=== PATIENT | female | born 1965 | race Caucasian/White ===

== ENCOUNTER → 2023-03-13 09:43 | Outpatient (CLI) | payer BC, SELFPAY ==
[2023-03-13 18:04] LABS: Basophils # 0.1 K/mm3 (0-0.2); Basophils % 0.7 % (0.1-2.0); Eosinophils # 0.2 K/mm3 (0.0-0.4); Eosinophils % 2.1 % (0.1-12.0); Hematocrit 46.4 % (37.0-47.0); Hemoglobin 15.4 g/dL (12.2-16.2); Lymphocytes % 33.8 % (10-50); Mean Corpuscular HGB Conc 33.2 g/dL (31.8-35.4); Mean Corpuscular Hemoglobin 29.1 pg (27.0-31.2); Mean Corpuscular Volume 87.6 fl (81-99); Mean Platelet Volume 8.9 fl (7.4-10.4); Monocytes # 0.5 K/mm3 (0.1-1.0); Monocytes % 5.2 % (1.7-9.3); Neutrophils # 5.2 K/mm3 (1.8-7.8); Neutrophils % 58.1 % (37.0-80.0); Platelet Count 298 K/mm3 (142-424); Red Cell Distribution Width 13.8 % (11.5-17.5); White Blood Count 8.9 K/mm3 (4.8-10.8)
[2023-03-13 18:22] LABS: Alanine Aminotransferase 61 U/L (12-78); Albumin Level 4.3 g/dl (3.5-5.0); Albumin/Globulin Ratio 1.4 (1.1-1.8); Alkaline Phosphatase 99 U/L (38-126); Anion Gap 14.2 mEq/L (5-15); Aspartate Amino Transferase 47 U/L (14-36); Bilirubin,Total 0.5 mg/dl (0.2-1.3); Blood Urea Nitrogen 15 mg/dl (7-17); Calcium 9.4 mg/dl (8.4-10.2); Carbon Dioxide 25 mmol/L (22.0-30.0); Chloride 101 mmol/L (98-107); Chol/HDL Ratio 4.6 (1-3.5); Cholesterol 216 mg/dl (140-200); Estimated Glomerular Filt Rate 86 ml/min (>60); GFR (African American) 104 ML/MIN (>60); Globulin 3.1 g/dL (1.3-3.2); Glucose 229 mg/dl (74-100); HDL Cholesterol 47 mg/dl (40-60); Potassium 4.2 mmoL/L (3.5-5.1); Sodium 136 mmol/L (136-145); Total Protein,Serum 7.4 g/dl (6.3-8.2); Triglycerides 240 mg/dl (30-150); VLDL Cholesterol 48 mg/dL (0-40)
[2023-03-13 18:34] LABS: Direct LDL Cholesterol 121.71 mg/dL (100-129)
[2023-03-13 18:39] LABS: 25-OH Vitamin D, Total 28.5 ng/mL (30-100)
[2023-03-13 18:53] LABS: Thyroid Stimulating Hormone 0.62 uIU/mL (0.465-4.68)
[2023-03-13 19:12] LABS: Vitamin B12 634 pg/mL (239-931)
[2023-03-13 20:03] LABS: Hemoglobin A1C 10.1 % (4.0-6.0)
[2023-03-13 21:03] LABS: Microalbumin/Creatinine Ratio 33.7
[2023-03-13 21:05] LABS: Creatinine,Urine Random 29 mg/dL (Not Estab.)
== END ==
LOC: LAB.DROPOF 03-14 06:32
PROVIDERS: PCP Nurse Practitioner; Visit Provider Nurse Practitioner
DX: E11.9 Type 2 diabetes mellitus without complications (principal); F41.8 Other specified anxiety disorders; J45.909 Unspecified asthma, uncomplicated; Z68.32 Body mass index [BMI] 32.0-32.9, adult; Z79.84 Long term (current) use of oral hypoglycemic drugs; E55.9 Vitamin D deficiency, unspecified; J82.83 Eosinophilic asthma
CPT/HCPCS: 80053; 80061; 82043; 82306; 82570; 82607; 83036; 84443; 85025

== ENCOUNTER → 2023-05-14 06:55 | Outpatient (CLI) | payer BC, SELFPAY ==
[2023-05-14 19:58] LABS: Alanine Aminotransferase 49 U/L (12-78); Albumin Level 4.3 g/dl (3.5-5.0); Albumin/Globulin Ratio 1.5 (1.1-1.8); Alkaline Phosphatase 91 U/L (38-126); Anion Gap 11.2 mEq/L (5-15); Aspartate Amino Transferase 37 U/L (14-36); Bilirubin,Total 0.4 mg/dl (0.2-1.3); Blood Urea Nitrogen 15 mg/dl (7-17); Calcium 8.5 mg/dl (8.4-10.2); Carbon Dioxide 24 mmol/L (22.0-30.0); Chloride 105 mmol/L (98-107); Chol/HDL Ratio 4.7 (1-3.5); Cholesterol 242 mg/dl (140-200); Estimated Glomerular Filt Rate 74 ml/min (>60); GFR (African American) 89 ML/MIN (>60); Globulin 2.9 g/dL (1.3-3.2); Glucose 143 mg/dl (74-100); HDL Cholesterol 52 mg/dl (40-60); Potassium 4.2 mmoL/L (3.5-5.1); Sodium 136 mmol/L (136-145); Total Protein,Serum 7.2 g/dl (6.3-8.2); Triglycerides 252 mg/dl (30-150); VLDL Cholesterol 50 mg/dL (0-40)
[2023-05-14 20:09] LABS: Direct LDL Cholesterol 145.54 mg/dL (100-129); Hemoglobin A1C 8.1 % (4.0-6.0)
[2023-05-14 21:30] LABS: 25-OH Vitamin D, Total 40.9 ng/mL (30-100)
== END ==
LOC: LAB.DROPOF 05-15 06:56
PROVIDERS: PCP Nurse Practitioner; Visit Provider Nurse Practitioner
DX: E11.9 Type 2 diabetes mellitus without complications (principal); E55.9 Vitamin D deficiency, unspecified; E78.5 Hyperlipidemia, unspecified; I10 Essential (primary) hypertension; Z79.84 Long term (current) use of oral hypoglycemic drugs
CPT/HCPCS: 80053; 80061; 82306; 83036

== ENCOUNTER 2023-12-17 10:40 | Outpatient (CLI) | payer BC, SELFPAY ==
[2023-12-17 18:26] LABS: Alanine Aminotransferase 33 U/L (12-78); Albumin Level 4.1 g/dl (3.5-5.0); Albumin/Globulin Ratio 1.4 (1.1-1.8); Alkaline Phosphatase 112 U/L (38-126); Anion Gap 13.5 mEq/L (5-15); Aspartate Amino Transferase 26 U/L (14-36); Bilirubin,Total 0.5 mg/dl (0.2-1.3); Blood Urea Nitrogen 22 mg/dl (7-17); Calcium 9.4 mg/dl (8.4-10.2); Carbon Dioxide 27 mmol/L (22.0-30.0); Chloride 103 mmol/L (98-107); Chol/HDL Ratio 3.8 (1-3.5); Cholesterol 215 mg/dl (140-200); Estimated Glomerular Filt Rate 86 ml/min (>60); GFR (African American) 104 ML/MIN (>60); Globulin 2.9 g/dL (1.3-3.2); Glucose 293 mg/dl (74-100); HDL Cholesterol 57 mg/dl (40-60); Potassium 4.5 mmoL/L (3.5-5.1); Sodium 139 mmol/L (136-145); Triglycerides 159 mg/dl (30-150); VLDL Cholesterol 32 mg/dL (0-40)
[2023-12-17 18:38] LABS: Direct LDL Cholesterol 118.23 mg/dL (100-129)
[2023-12-17 18:57] LABS: Thyroid Stimulating Hormone 0.95 uIU/mL (0.465-4.68)
[2023-12-17 18:59] LABS: Microalbumin/Creatinine Ratio 9.2
[2023-12-17 19:02] LABS: Creatinine,Urine Random 102 mg/dL (Not Estab.)
[2023-12-17 19:13] LABS: Hemoglobin A1C 9.7 % (4.0-6.0)
== END 2023-12-17 23:59 | disposition home or self-care (01) ==
LOC: LAB.DROPOF 12-18 10:41
PROVIDERS: PCP Nurse Practitioner; Visit Provider Nurse Practitioner
DX: E11.9 Type 2 diabetes mellitus without complications (principal); I10 Essential (primary) hypertension; E55.9 Vitamin D deficiency, unspecified; E78.5 Hyperlipidemia, unspecified; F41.8 Other specified anxiety disorders; J45.909 Unspecified asthma, uncomplicated
CPT/HCPCS: 80053; 80061; 82043; 82306; 82570; 83036; 84443

== ENCOUNTER 2024-03-12 08:52 | Outpatient (CLI) | payer BC, SELFPAY ==
[2024-03-12 19:04] LABS: Alanine Aminotransferase 29 U/L (12-78); Albumin Level 4.5 g/dl (3.5-5.0); Albumin/Globulin Ratio 1.7 (1.1-1.8); Alkaline Phosphatase 71 U/L (38-126); Anion Gap 6.3 mEq/L (5-15); Aspartate Amino Transferase 29 U/L (14-36); Bilirubin,Total 0.5 mg/dl (0.2-1.3); Blood Urea Nitrogen 18 mg/dl (7-17); Calcium 9.4 mg/dl (8.4-10.2); Carbon Dioxide 27 mmol/L (22.0-30.0); Chloride 109 mmol/L (98-107); Chol/HDL Ratio 2.2 (1-3.5); Cholesterol 132 mg/dl (140-200); Estimated Glomerular Filt Rate 74 ml/min (>60); GFR (African American) 89 ML/MIN (>60); Globulin 2.7 g/dL (1.3-3.2); Glucose 88 mg/dl (74-100); HDL Cholesterol 59 mg/dl (40-60); Potassium 4.3 mmoL/L (3.5-5.1); Sodium 138 mmol/L (136-145); Total Protein,Serum 7.2 g/dl (6.3-8.2); Triglycerides 92 mg/dl (30-150); VLDL Cholesterol 18 mg/dL (0-40)
[2024-03-12 19:09] LABS: Hemoglobin A1C 6.8 % (4.0-6.0)
[2024-03-12 19:15] LABS: Direct LDL Cholesterol 50.41 mg/dL (100-129)
[2024-03-12 19:53] LABS: Vitamin B12 796 pg/mL (239-931)
== END 2024-03-12 23:59 | disposition home or self-care (01) ==
LOC: LAB.DROPOF 03-13 09:39
PROVIDERS: PCP Nurse Practitioner; Visit Provider Nurse Practitioner
DX: E11.9 Type 2 diabetes mellitus without complications (principal); E78.5 Hyperlipidemia, unspecified
CPT/HCPCS: 80053; 80061; 82607; 83036

== ENCOUNTER 2024-06-22 09:26 | Outpatient (CLI) | payer BC, SELFPAY ==
[2024-06-22 18:53] LABS: Albumin Level 4.4 g/dl (3.5-5.0); Chloride 104 mmol/L (98-107); Potassium 5.3 mmoL/L (3.5-5.1); Sodium 138 mmol/L (136-145)
[2024-06-22 18:56] LABS: Alanine Aminotransferase 26 U/L (12-78); Albumin/Globulin Ratio 1.6 (1.1-1.8); Alkaline Phosphatase 72 U/L (38-126); Anion Gap 11.3 mEq/L (5-15); Aspartate Amino Transferase 29 U/L (14-36); Bilirubin,Total 0.3 mg/dl (0.2-1.3); Blood Urea Nitrogen 21 mg/dl (7-17); Calcium 9.3 mg/dl (8.4-10.2); Carbon Dioxide 28 mmol/L (22.0-30.0); Cholesterol 214 mg/dl (140-200); Estimated Glomerular Filt Rate 86 ml/min (>60); GFR (African American) 104 ML/MIN (>60); Globulin 2.8 g/dL (1.3-3.2); Glucose 87 mg/dl (74-100); Total Protein,Serum 7.2 g/dl (6.3-8.2); Triglycerides 102 mg/dl (30-150); VLDL Cholesterol 20 mg/dL (0-40)
[2024-06-22 18:57] LABS: Chol/HDL Ratio 3.3 (1-3.5); HDL Cholesterol 64 mg/dl (40-60)
[2024-06-22 19:08] LABS: Direct LDL Cholesterol 117.18 mg/dL (100-129)
[2024-06-22 19:13] LABS: Microalbumin/Creatinine Ratio 6.4
[2024-06-22 19:14] LABS: Creatinine,Urine Random 153 mg/dL (Not Estab.)
[2024-06-22 20:00] LABS: Hemoglobin A1C 5.6 % (4.0-6.0)
== END 2024-06-22 23:59 | disposition home or self-care (01) ==
LOC: LAB.DROPOF 06-23 07:45
PROVIDERS: PCP Nurse Practitioner; Visit Provider Nurse Practitioner
DX: E78.5 Hyperlipidemia, unspecified (principal); E11.9 Type 2 diabetes mellitus without complications; Z79.84 Long term (current) use of oral hypoglycemic drugs; Z79.85 Long-term (current) use of injectable non-insulin antidiabetic drugs
CPT/HCPCS: 80053; 80061; 82043; 82570; 83036

== ENCOUNTER 2024-07-21 16:58 | Outpatient (CLI) | payer BC, SELFPAY ==
--- NOTE | 2024-07-21 17:02 | MM_ITS ---
PROCEDURE INFORMATION: Exam: Bilateral Screening 3D Mammography Exam date and time: 07/21/2024 5:05 PM Age: 59 years old Clinical indication: Screening examination TECHNIQUE: Imaging protocol: Bilateral Screening tomosynthesis and 2D mammography including computer-aided detection (CAD) when performed. COMPARISON: MG MAMM-SCREENING W/ERROL 11/06/2021 8:16 AM FINDINGS: MAMMOGRAPHY: Breast composition: The breasts are heterogeneously dense, which may obscure small masses. Mass: None. Architectural distortion: None. Calcifications: No suspicious calcifications. Asymmetric density: None. Skin thickening: None. Axillary adenopathy: None. IMPRESSION: No mammographic evidence of malignancy. Annual screening is recommended unless otherwise clinically indicated. ASSESSMENT: BI-RADS Category 1: Negative.
== END 2024-07-21 23:59 | disposition home or self-care (01) ==
LOC: RAD 16:59
PROVIDERS: PCP Nurse Practitioner; Visit Provider Nurse Practitioner
DX: Z12.31 Encounter for screening mammogram for malignant neoplasm of breast (principal)
CPT/HCPCS: 77063; 77067

== ENCOUNTER 2024-10-20 11:40 | Outpatient (CLI) | payer BC, SELFPAY ==
--- OUTSIDE RECORDS SUMMARY | 2024-10-20 22:22 | XMS_ITS ---
Author Organization Unknown Medications Medication Instructions Effective Dates (start - stop) Status 24 HR glipizide 10 MG Extend ed Release Oral Tablet [id number]:00:00.000+00:0 0 - Completed sitagliptin 100 MG Oral Tabl et [Junuvia] [id number]:00:00.000+00:0 0 - Completed meloxicam 7.5 MG Oral Tablet 07-15-29T:00:00.000+00:00 - Completed 24 HR glipizide 10 MG Extend ed Release Oral Tablet [id number]:00:00.000+00:0 0 - Completed meloxicam 7.5 MG Oral Tablet 07-15-05:00:00.000+00:00 - Completed 24 HR glipizide 10 MG Extend ed Release Oral Tablet [id number]:00:00.000+00:0 0 - Completed lisinopril 10 MG Oral Tablet 07-10-30T:00:00.000+00:00 - Completed 24 HR glipizide 10 MG Extend ed Release Oral Tablet [id number]:00:00.000+00:0 0 - Completed meloxicam 7.5 MG Oral Tablet 07-14-09T:00:00.000+00:00 - Completed sitagliptin 100 MG Oral Tabl et [Junuvia] [id number]:00:00.000+00:0 0 - Completed meloxicam 7.5 MG Oral Tablet 08-02-13:00:00.000+00:00 - Completed lisinopril 10 MG Oral Tablet 08-06-14T:00:00.000+00:00 - Completed - [id number]:00 :00.000+00:00 - Completed meloxicam 7.5 MG Oral Tablet 08-05-05:00:00.000+00:00 - Completed methocarbamol 500 MG Oral Tablet [id number]:00:00.000+00:00 - Completed lisinopril 10 MG Oral Tablet 07-13-19:00:00.000+00:00 - Completed 120 ACTUAT fluticasone propi rosemary 0.044 MG/ACTUAT Metered Dose Inhaler [Flovent] [id number]:00:00.000+00:0 0 - Completed 24 HR glipizide 10 MG Extend ed Release Oral Tablet [id number]:00:00.000+00:0 0 - Completed meloxicam 7.5 MG Oral Tablet 08-04-05:00:00.000+00:00 - Completed sitagliptin 100 MG Oral Tabl et [Januvia] [id number]:00:00.000+00:0 0 - Completed meloxicam 7.5 MG Oral Tablet 08-01-21:00:00.000+00:00 - Completed ibuprofen 800 MG Oral Tablet 08-05-29:00:00.000+00:00 - Completed meloxicam 7.5 MG Oral Tablet 08-03-08:00:00.000+00:00 - Completed ibuprofen 800 MG Oral Tablet 08-07-13:00:00.000+00:00 - Completed [id number] 200 ACTUAT albuter ol 0.09 MG/ACTUAT Metered Dose Inhaler [id number]:00:00.000+00:0 0 - Completed lisinopril 10 MG Oral Tablet 08-04-15:00:00.000+00:00 - Completed dexamethasone 1 MG/ML / tobramycin 3 MG/ML Ophthalmic Suspension [id number]:00:00.000+00:0 0 - Completed Patient Care team information Name Category Status Period Participants - - Proposed period not known -
== END 2024-10-20 23:59 | disposition home or self-care (01) ==
LOC: LAB.DROPOF 22:21
PROVIDERS: PCP Nurse Practitioner; Visit Provider Nurse Practitioner
DX: N39.0 Urinary tract infection, site not specified (principal)
CPT/HCPCS: 87086

== ENCOUNTER 2025-05-24 09:10 | Outpatient (CLI) | payer BC, SELFPAY ==
[2025-05-24 16:44] LABS: Hematocrit 42.2 % (37.0-47.0); Hemoglobin 13.6 g/dL (12.2-16.2); Immature Granulocytes % 0.3 %; Mean Corpuscular HGB Conc 32.2 g/dL (31.8-35.4); Mean Corpuscular Hemoglobin 27.9 pg (27.0-31.2); Mean Corpuscular Volume 86.7 fl (81-99); Nucleated Red Blood Cells % 0 %; Platelet Count 315 K/mm3 (142-424); Red Blood Count 4.87 M/mm3 (4.20-5.40); Red Cell Distribution Width-SD 45.2 fL; White Blood Count 7.6 K/mm3 (4.8-10.8)
[2025-05-24 17:32] LABS: Alanine Aminotransferase 19 U/L (12-78); Albumin Level 4.4 g/dl (3.5-5.0); Albumin/Globulin Ratio 1.7 (1.1-1.8); Alkaline Phosphatase 77 U/L (38-126); Anion Gap 9.4 mEq/L (5-15); Aspartate Amino Transferase 25 U/L (14-36); Bilirubin,Total 0.6 mg/dl (0.2-1.3); Blood Urea Nitrogen 19 mg/dl (7-17); Calcium 9.0 mg/dl (8.4-10.2); Carbon Dioxide 28 mmol/L (22.0-30.0); Chloride 103 mmol/L (98-107); Cholesterol 231 mg/dl (140-200); Creatinine,Serum 0.90 mg/dl (0.52-1.04); Estimated Glomerular Filt Rate 64 ml/min (>60); GFR (African American) 77 ML/MIN (>60); Globulin 2.6 g/dL (1.3-3.2); Glucose 74 mg/dl (74-100); HDL Cholesterol 77 mg/dl (40-60); Potassium 4.4 mmoL/L (3.5-5.1); Sodium 136 mmol/L (136-145); Total Protein,Serum 7.0 g/dl (6.3-8.2); Triglycerides 111 mg/dl (30-150)
[2025-05-24 18:06] LABS: Thyroid Stimulating Hormone 0.48 uIU/mL (0.465-4.68)
[2025-05-24 18:22] LABS: Vitamin B12 585 pg/mL (239-931)
[2025-05-24 20:14] LABS: Hepatitis C Ab Qual. W/ RFX NEGATIVE (Negative)
[2025-05-24 20:56] LABS: Hemoglobin A1C 5.5 % (4.0-6.0)
--- OUTSIDE RECORDS SUMMARY | 2025-05-25 11:48 | XMS_ITS | Encounter Summary ---
Author Organization [place] [address] Care Team Providers Care Economics Faculty Member Name Role Phone Mono Moser MD Primary Care Provider [phone] Noel Haynes MD Primary Care Provider [phone] Fifi Mars MD Unavailable Fifi Mars MD Unavailable Elysia Schofield LPN Unavailable Unavailable China Medrano MD Primary Care Provider [phone] Encounter Details Date Type Department Care Team (Late st Contact Info) Description 05/24/2009 Orders Only [facility] [place] [address] [place] [address] Ashvin Meeks MD Social History Tobacco Use Types Packs/Day Years Used Date Smoking Tobacco: Never Assessed Comments Unknown Sex and Gender Information Value Date Recorded Sex Assigned at Not on file Legal Sex Female 11:22 AM EDT Gender Identity Not on file Sexual Orientation Not on file documented as of this encounter Plan of Treatment Not on file documented as of this encounter Procedures Procedure Name Priority Date/Time Associated Diagnosis Comments NM CARDIOLOGY - HISTORICAL Routine 05/24/2009 12:00 AM EST documented in this encounter Results * NM CARDIOLOGY - HISTORICAL (05/24/2009 12:00 AM EST) Anatomical Region Laterality Modality Other 05/24/2009 Narrative 06/06/2011 1:50 AM EST NOTICE: This report was electronically copied on 07/21/2011 from historical data generated by a practice prior to that practice using [facility] [employer] for Medical Records. Performing Provider: CHHAYA us Ashvin Meeks MD IMG ECHO ORDERABLES Final Res ult documented in this encounter Visit Diagnoses Not on filedocumented in this encounter Care Teams Economics Faculty Member Relationship Specialty Start Date End Date Mono Moser MD PCP - General 05/18/09 08/02/11 Noel Haynes MD [address] [facility] [place] [address] PCP - General Family Medicine 08/03/11 04/09/18 Fifi Mars MD [address] [facility] [address] [place] [address] PCP - Hematology/Oncology Internal Medicine-Medical Oncology 02/18/15 03/27/23 China Medrano MD [address] [place] [address] PCP - General Student in an Organized Health Care Education/Training Program 08/22/22 Fifi Mars MD [address] [facility] [address] [place], [place] [id number] Consulting Physician Internal Medicine-Medical Oncology 08/18/14 02/17/15 Elysia Schofield LPN [facility] Licensed Practical Nurse 12/14/15 08/20/16 documented as of this encounter
--- OUTSIDE RECORDS SUMMARY | 2025-05-25 11:48 | XMS_ITS | Encounter Summary ---
Author Organization [facility] Address [address] [place] [address] Care Team Providers Care Steelworker Name Role Phone Noel Haynes MD Primary Care Provider [phone] Mary Chu NP Unavailable Unavailable Mary Chu NP Primary Care Provider China Turcios MD Unavailable [phone] China Medrano MD Primary Care Provider [phone] Adria Hernandez MD Unavailable Unavailab Maddison Au RN Unavailable [phone] Ashvin Llanos MD Unavailable [phone] Encounter Details Date Type Department Care Team (Latest Contact Info) Description 11/15/2016 Preop Surgical Orders [facility] Physicians - Urology, [address] [place] [phone] Evelyn Holliday, FELICIA [address] [place] [address] Kidney stone (Primary Dx) Social History Tobacco Use Types Packs/Day Years Used Date Smoking Tobacco: Never Smokeless Tobacco: Never Alcohol Use Standard Drinks/Week Comments No 0 (1 standard drink = 0.6 oz pur e alcohol) Comments No Sex and Gender Information Value Date Recorded Sex Assigned at Female 05/29/2021 3:40 PM EST Legal Sex Female 7:13 PM EST Gender Identity Female 05/29/2021 3:40 PM EST Sexual Orientation Straight 05/29/2021 3: 40 PM EST documented as of this encounter Functional Status * Are you blind or do you have difficulty seeing, even when wearing glasses? Answer Date of Assessment Author No 09/09/2013 11:10 PM EDT Susanne Simon RN * Do you have serious difficulty walking or climbing stairs? Answer Date of Assessment Author No 09/09/2013 11:10 PM EDT Susanne Simon RN * Do you have difficulty dressing or bathing? Answer Date of Assessment Author No 09/09/2013 11:10 PM EDT Susanne Simon RN * Because of a physical, mental, or emotional condition, do you have difficulty doing errands alone such as a visiting a doctor's office or shopping? Answer Date of Assessment Author No 09/09/2013 11:10 PM EDT Susanne Simon RN documented as of this encounter Mental Status * Because of a physical, mental, or emotional condition, do you have serious difficulty concentrating, remembering, or making decisions? Answer Entry Date Author No 09/09/2013 11:10 PM EDT Susanne Simon RN documented in this encounter Plan of Treatment Not on file documented as of this encounter Visit Diagnoses Diagnosis Kidney stone- Primary Calculus of kidney documented in this encounter Additional Health Concerns Infection Onset Date Last Indicated Resolved Time Coronavirus COVID-19 Comment:06/20/2021 Tested Positive Covid-19. Per Patient 06/20/2021 06/24/2021 08/24/2021 6:54 AM EDT Influenza Comment:08/23/2021 Positive FLU A 08/23/2021 08/24/2021 022 7:59 AM EDT documented as of this encounter Care Teams Steelworker Relationship Specialty Start Date End Date Noel Haynes MD PCP - General Family Medicine 07/24/12 05/28/21 Mary Chu NP PCP - General Nurse Practitioner, Family 05/29/21 08/21/21 China Medrano MD PCP - General Family Medicine 08/22/21 Mary Chu NP Nurse Practitioner Nurse Practitioner, Family 05/29/21 10/23/21 China Medrano MD Family Medicine 08/21/21 10/23/21 Adria Hernandez MD Family Medicine 09/11/21 Maddison Foley, FELICIA [address] [place] [address] Graphics Software Engineer 04/12/22 04/13/22 Ashvin Llanos MD [address] [facility] [place] [address] Urology 06/10/22 documented as of this encounter
--- OUTSIDE RECORDS SUMMARY | 2025-05-25 11:48 | XMS_ITS | Encounter Summary ---
Author Organization [facility] Address [address] [place] [address] Care Team Providers Care Web Marketing Intern Name Role Phone China Medrano MD Primary Care Provider Adria Hernandez MD Unavailable Unavailab Ashvin Holly MD Unavailable [phone] Reason for Visit * Reason Comments Medications Refill Encounter Details Date Type Department Care Team (Late st Contact Info) Description 07/25/[address] [facility] Physicians - Primary Care[address] [address] China Medrano MD [address] [id number] Medications Refill Social History Tobacco Use Types Packs/Day Years Used Date Smoking Tobacco: Never Smokeless Tobacco: Never Alcohol Use Standard Drinks/Week Comments No 0 (1 standard drink = 0.6 oz pur e alcohol) PHQ-2 Answer Date Recorded PHQ-9 Auto Total 0 05/29/2021 Comments No Sex and Gender Information Value [...] Entry Date Author No 09/09/2013 11:10 PM Susanne Bateman RN documented in this encounter Miscellaneous Notes * Telephone Encounter - Elvi Martin MA - 07/25/2022 8:00 AM EST Last Office Visit:October 24 Next Office Visit:08/16/2022 Last rf 04/24/22 documented in this encounter Plan of Treatment Not on file documented as of this encounter Visit Diagnoses Diagnosis Uncontrolled type 2 diabetes mellitus with hyperglycemia (CMS/HCC) documented in this encounter Additional Health Concerns Assessment Noted Time PHQ-9 Depression Total Score: 1 05/29/20 21 2:30 PM EST documented as of this encounter Care Teams Web Marketing Intern Relationship Specialty Start Date End Date China Medrano MD PCP - General Family Medicine 08/22/21 Adria Hernandez MD Family Medicine 09/11/21 Ashvin Llanos MD [address] [place] [address] Urology 06/10/22 documented as of this encounter
--- OUTSIDE RECORDS SUMMARY | 2025-05-25 11:48 | XMS_ITS | Encounter Summary ---
Author Organization [place] [address] Care Team Providers Care High School Football Coach Name Role Phone Mono Moser MD Primary Care Provider [phone] Noel Haynes MD Primary Care Provider [phone] Fifi Mars MD Unavailable Fifi Mars MD Unavailable Elysia Schofield LPN Unavailable Unavailable China Medrano MD Primary Care Provider [phone] Encounter Details Date Type Department Care Team (Late st Contact Info) Description 05/24/2009 Orders Only [facility] [place] [address] [place] [address] Ashvin Meeks MD Social History [...] Procedure Name Priority Date/Time Associated Diagnosis Comments ECHO - HISTORICAL Routine 05/24/2009 12: 00 AM EST documented in this encounter Results * ECHO - HISTORICAL (05/24/2009 12:00 AM EST) Anatomical Region Laterality Modality Other 05/24/2009 Narrative 06/06/2011 1:50 AM EST NOTICE: This report was electronically copied on 07/20/2011 from historical data generated by a practice prior to that practice using [facility] for Medical Records. Performing Provider: CHHAYA us Ashvin Meeks MD IMG ECHO ORDERABLES Final Res ult documented in this encounter Visit Diagnoses Not on filedocumented in this encounter Care Teams High School Football Coach Relationship Specialty Start Date End Date Mono Moser MD PCP - General 05/18/09 08/02/11 Noel Haynes MD [address] [facility] [place] [phone] PCP - General Family Medicine 08/03/11 04/09/18 Fifi Mars MD [address] [facility] [address] [place] [address] PCP - Hematology/Oncology Internal Medicine-Medical Oncology 02/18/15 03/27/23 China Medrano MD [address] [facility] [place] [address] PCP - General Student in an Organized Health Care Education/Training Program 08/22/22 Fifi Mars MD [address] [facility] [address] [place], [place] [phone] Consulting Physician Internal Medicine-Medical Oncology 08/18/14 02/17/15 Elysia Schofield LPN [facility] Licensed Practical Nurse 12/14/15 08/20/16 documented as of this encounter
--- OUTSIDE RECORDS SUMMARY | 2025-05-25 11:48 | XMS_ITS | Clinical Summary ---
Author Organization [facility] Address [address] [place] [address] Phone Care Team Providers Care Special Delivery Mail Carrier Name Role Phone China Medrano MD Primary Care Provider [phone] Allergies Active Allergy Reactions Criticality Noted Date Comments Adhesive Other (See Comments) Medium 08/17/2022 Micropore tape tears her skin off; paper tape is OK Codeine Nausea And Vomiting Medium 08/21/2010 Corticosteroids (Glucocorticoids) Other (See Comments) High 01/12/2010 Heart racing Covid-19 Vacc,Mrna(Pfizer)(Pf) Anaphylaxis High 03/26/2023 Erythromycin Diarrhea Medium 01/12/2010 Gentamicin Other (See Comments) Medium 01/12/2010 Lips swell. Levofloxacin Other (See Comments) Low 08/21/2010 thrush Metformin Diarrhea Medium 07/14/2015 Oxycodone Nausea And Vomiting Medium 08/21/2010 Penicillins Rash Low 01/12/2010 Prednisone Other (See Comments) High 08/21/2010 Heart race Butorphanol Tartrate Other (See Comments) Medium 01/12 Psychotic reactions Medications Blood Sugar Diagnostic (GLUCOSE BLOOD TEST STRIPS) StrpIndications: DM type 2 without retinopathy (HCC) Use as directed to monitor blood sugars bid 100 Strip 1 2 Active aspirin 81 mg tablet Take 81 mg by mouth daily. Active Lancets MiscIndications: DM type 2 without retinopathy (HCC) Use as directed to monitor blood sugars bid 100 Each 3 3 Active cetirizine (ZYRTEC) 10 mg tablet Take 10 mg by mouth nightly. Active pen needle, diabetic 32 gauge x 1/6 Misc NeedleIndication s:Diabetes mellitus type 2, uncontrolled 1 Each by [facility].(Non-Drug; Combo Route) route daily. 100 Each 3 6 Active hydroCHLOROthiaz olivia (HYDRODIURIL) 25 mg Oral Tablet TAKE ONE TABLET BY MOUTH DAILY 30 Tab 2 6 Active Additional Information Patient not taking.Reason: Pt electing to not take the medication, Reported on 03/26/2023 albuterol (PROAIR HFA) 90 mcg/actuation Inhl HFA Aerosol InhalerIndicatio ns:Asthma exacerbation Inhale 1-2 Puffs into the lungs every 4 hours as needed for Wheezing. 8 g 1 7 Active estradiol (ESTRACE) 0.5 mg Oral Tablet Take 0.5 mg by mouth daily. Active PARoxetine (PAXIL) 20 mg Oral TabletIndication s:Major depressive disorder, recurrent, in full remission Take 1 Tab by mouth daily. 30 Tab 8 Active Additional Information Patient taking differently:20 mg Oral DAILY,Takes at night, Reason: Advised by Physician, Reported on 03/26/2023 lisinopril (PRINIVIL;ZESTRI L) 10 mg Oral TabletIndication s:Hypertension associated with diabetes (HCC) Take 1 Tab by mouth daily. 90 Tab 8 Active Additional Information Patient taking differently:10 mg OralNIGHTLY, Reason: Other, Reported on 08/17/2022 JANUVIA 100 mg Oral Tablet 100 mg daily. 1 9 Active glipiZIDE (GLUCOTROL XL) 10 mg Oral Tablet Extended Rel 24 hr Take 10 mg by mouth daily. Active diphenhydrAMINE (BENADRYL) 25 mg Oral Capsule Take 25 mg by mouth as needed. Active fluticasone propionate (FLOVENT) 44 mcg/actuation Inhl HFA Aerosol Inhaler Inhale 2 Puffs into the lungs as needed. 2 Active ibuprofen (ADVIL;MOTRIN) 800 mg Oral TabletIndication s:S/P right rotator cuff repair Take 1 Tablet by mouth 3 times daily. 90 Tablet 2 3 Active busPIRone (BUSPAR) 10 mg Oral Tablet TAKE 1 TABLET BY MOUTH TWICE A DAY NEEDED FOR ANXIETY/MOOD 3 Active montelukast (SINGULAIR) 10 mg Oral Tablet Take 10 mg by mouth daily. 3 Active Cholecalciferol, Vitamin D3, 50 mcg (2,000 unit) Oral Capsule Take by mouth daily. Active krill oil 500 mg Oral Capsule Take by mouth daily. Active Active Problems Patient Care Coordination No te Formatting of this note migh t be different from the original. 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 Major depressive disorder, recurrent, in full re mission 08/21/2010 Asthma 06/27/2010 Allergic rhinitis 06/27/2010 Calcium oxalate renal stones 06/27/2010 Hypertension associated with diabetes 06/27/2010 Chronic pain 06/27/2010 Overview (06/27/2010): See's Dr. Hernandez Resolved Problems Problem Noted Date Diagnosed Date Resolved Date History of malignant carcinoid tumor 02/10/2014 06/10/2019 Immunizations Immunization Administration Dates Next Due Influenza Intradermal 07/31/2016 Influenza Patient Reported 04/17/2013 Influenza Vaccine, Unspecified Formulation 04/07,03/03/2015 PPD Test 05/04/2013 Pneumococcal Polysaccharide 23 Valent 08/03/2011 Tdap 11/13/2011 Surgical History Surgery Date Site/Laterality Comments SECTION c section repair ABDOMEN SURGERY scar tissue HYSTERECTOMY APPENDECTOMY DENTAL SURGERY wisdom teeth removal SHOULDER ARTHROSCOPY 08/22/2022 Shoulder/Right RIGHT SHOULDER ARTHROSCOPIC ROTATOR CUFF REPAIR, SUBACROMIAL DECOMPRESSION, BICEPS TENOTOMY; Surgeon: Akin Richards MD; Location: [facility]; Service: Orthopedics Medical devices from this surgery are in the Medical Devices section. Medical History Medical History Date Comments Hypertension Asthma exercise induced , worsens when sick, has inhalers Allergy Depression with anxiety 08/21/2010 Blood transfusion 1993 post op surgic al complication Arthritis Shoulder pain Shortness of breath in conjuncti on w/asthma, exercise induced Diabetes mellitus (HCC) Palpitations none since SARS-CoV-2 positive 06/20/2022 Headache sinus and allerg y related Chronic kidney disease audra of [place] stones Post-operative nausea and vomiting Motion sickness Hyperlipidemia Heartburn Urinary incontinence Encounter for blood transfusion Cancer (HCC) Neuro of the amairani endix- removed Family History Medical History Relation Name Comments Diabetes Brother Cancer Father Diabetes Father Hearing Loss Father Heart Disease Father High Blood Pressure Father Asthma Mother Breast Cancer Mother Glaucoma Mother Kidney Disease Mother Relation Name Status Comments Brother Father Mother Alive Social History Tobacco Use Types Packs/Day Years Used Date Smoking Tobacco: Never Passive Smoke Exposure: Past Smokeless Tobacco: Never Tobacco Cessation:Counseling Given: Not Answered Alcohol Use Standard Drinks/Week Comments No 0 (1 standard drink = 0.6 oz pur e alcohol) Comments No Sex and Gender Information Value Date Recorded Sex Assigned at Not on file Legal Sex Female 11:22 AM EDT Gender Identity Not on file Sexual Orientation Not on file Last Filed Vital Signs Vital Sign Reading Time Taken Comments Blood Pressure 115/64 04/01/2023 11:31 AM EDT Pulse 90 04/01/2023 11:31 AM EDT Temperature 36.2 C (97.2 F) 04/01/2023 11:31 AM EDT Respiratory Rate 16 04/01/2023 11:31 AM EDT Oxygen Saturation 94% 04/01/2023 11:31 AM EDT Inhaled Oxygen Concentration - - Weight 76.3 kg (168 lb 3.2 oz) 04/01/2023 6:29 A M EDT Height 152.4 cm (5') 04/01/2023 6:29 AM EDT Body Mass Index 32.85 04/01/2023 6:29 AM EDT Plan of Treatment Health Maintenance Due Date Last Done Comments Annual Wellness Exam 1968 Diabetic Eye Exam 1983 HPV/Pap Cotest 1995 Colonoscopy 2010 FIT 2010 Sigmoidoscopy 2010 Virtual Colonography 2010 Pneumococcal Vaccine 50+ (2 of 2 - PCV) 08/02/2012 08/03/2011, 06/03/2011 RSV or 60+ (1 - Risk 50-74 years 1-dose series) 2015 Zoster (1 of 2) 2015 Kidney Health: uACR 11/06/2017 11/06/2016, 12/13/2015, 05/18/2013, Additional history exists Cervical Cancer Screening 03/18/2021 Pap Smear 03/18/2021 03/18/2018 Lipids 10/05/2021 10/05/2020, 07/05, 07/31/2016, Additional history exists DTaP/TDaP/Td (2 - Td or Tdap) 11/12/2021 11/13/2011 Hemoglobin A1c 11/27/2021 05/29/2021, 05/0 10/2020, 11/06/2016, Additional history exists Breast Cancer Screening 11/07/2023 11/07/19, 10/18/2018, 10/18/2018, Additional history exists Kidney Health: eGFR 03/27/2024 03/27/2023, 07/07/2021, 10/05/2020, Additional history exists Cologuard 06/01/2024 06/01/2021, 09/22/2015 Colon Cancer Screening 06/01/2024 COVID-19 Vaccine ( season) 2025 08/26/2020, 08/08/2020 Influenza Vaccine (#1) 2025 9, 05/04/2019, 04/07/2017, Additional history exists Hepatitis C Screening Completed 07/31/2016 Hepatitis B Vaccine Aged Out No longe r eligible based on patient's age to complete this topic Meningococcal B Vaccine Aged Out No l onger eligible based on patient's age to complete this topic Goals Goal Patient Goal Type Associated Problems Recent Progress Patient-Stated? Author Blood Pressure < 140/90 Blood Pressure 115/64(04/01 11:31 AM EDT) No Elysia Schofield LPN 45 grams of carbohydrates intake for women Diet On track(2016 12:44 PM EDT) No Elysia Schofield LPN 15 grams of carbohydrates for 2 snacks per day Diet On track(2016 12:44 PM EDT) No Elysia Schofield LPN Will not skip meals General On track(2016 12:44 PM EDT) Yes Elysia Schofield LPN BMI (Calculated) < 30 General 32.9( 023 6:29 AM EDT) No Elysia Schofield LPN Eat better, exercise, reach an ideal body weight General On track(2016 12:44 PM EDT) No Elysia Schofield LPN Check fasting glucose daily and document Lifestyle On track(2016 12:44 PM EDT) No Elysia Schofield LPN HEMOGLOBIN A1C < 7.0 Result Component 7.1(10/06/19 8:42 AM EDT) No Elysia Schofield LPN Medical Devices Implanted Type Area Pecan Gatherer Device Identifier Shelf Expiration Date Model / Serial / Lot Fairplay Sut Healix Advance 4.5mm Bcrl Rapide Wht/Blk - [id number] Implanted:Qty : 1 on 08/22/2022 by Akin Richards MD at [facility] Right: Shoulder J&J:ETHICON:MITE K PRDT 01/01/2024 [id number] / / [id number] Fairplay Sut Healix Advance 4.5mm Bcrl Rapide Wht/Blk - [id number] Implanted:Qty : 1 on 08/22/2022 by Akin Richards MD at [facility] Right: Shoulder J&J:ETHICON:MITE K PRDT 11/01/2023 [id number] / / [id number] Fairplay Sut Swivelk C 5.5x19.1mm Ft Kntls Twist-In Clsd Eylt - [id number] Implanted:Qty : 1 on 08/22/2022 by Akin Richards MD at [facility] Right: Shoulder ARTHREX [id number] 04/02/2026 [id number] C / / [id number] Fairplay Delmy Sauceda 5.5x19.1mm Ft Kntls Twist-In Clsd Eylt - [id number] Implanted:Qty : 1 on 08/22/2022 by Akin Richards MD at [facility] Right: Shoulder ARTHREX [id number] 04/02/2026 [id number]-[id number] C / / [id number] Procedures Procedure Name Priority Date/Time Associated Diagnosis Comments BASIC METABOLIC PANEL Routine 03/27/2023 12:33 PM EDT Preop testing Arthritis of right shoulder region LIPID PANEL REFLEX Routine 10/05/2020 8: 42 AM EDT Diabetes mellitus due to underlying condition with hyperosmolarity without coma, without long-term current use of insulin (HCC) HEMOGLOBIN A1C Routine 10/05/2020 8:42 AM EDT Diabetes mellitus due to underlying condition with hyperosmolarity without coma, without long-term current use of insulin (HCC) ALBUMIN/CREATININE RATIO, RANDOM URINE Routine 11/06/2016 9:00 AM EDT Controlled type 2 diabetes mellitus without complication, without long-term current use of insulin (HCC) HCV ANTIBODY SCREEN W/ REFLEX Routine 07/31/2016 2:12 PM EST Need for hepatitis C screening test HM MAMMOGRAPHY Routine 03/03/2016 from Last 3 Months or Most Recently Relevant to Health Maintenance Results * (ABNORMAL) BASIC METABOLIC PANEL (03/27/2023 12:33 PM EDT) Sodium 139 136 - 145 mmol/L 03/27/2023 8:09 PM EDT [facility] Potassium 4.1 3.5 - 5.0 mmol/L 03/27/2023 8:09 PM EDT [facility] Chloride 102 98 - 107 mmol/L 03/27/2023 8:09 PM EDT [facility] Total CO2 23 22 - 29 mmol/L 03/27/2023 8:09 PM EDT [facility] Anion Gap 14 7 - 16 mmol/L 03/27/2023 8:09 PM EDT [facility], [facility] Calcium 9.2 8.6 - 10.4 mg/dL 03/27/2023 8:09 PM EDT [facility] Glucose Lvl 175(H) 74 - 100 mg/dL 03/27/2023 8:09 PM EDT [facility], [facility] BUN 18 6 - 20 mg/dL 03/27/2023 8:09 PM EDT [facility] Creatinine 0.86 0.51 - 1.30 mg/dL 03/27/2023 8:09 PM EDT [facility] eGFR (CKD-EPIcr 2020) 78 >=60 mL/min/1.7 3 m2 03/27/2023 8:09 PM EDT [facility] Comment:Estimated GFR was ca lculated using the CKD-EPIcr (2020) equation refit without race. The equation is recommended by the National Kidney Foundation - [place] Society of Nephrology Task Force. Blood VENOUS BLOOD / Unknown Venipuncture / Unknown 03/27/2023 12:33 PM EDT 03/27/2023 12:33 PM EDT Kim Perez DOOR FRAME ASSEMBLER MACHINE CHEMISTRY ORDERABLES Final Re sult [facility], [facility] [address] [place] [id number] [facility] [address] [place] [address] * LIPID PANEL REFLEX (10/05/2020 8:42 AM EDT) Pathologist [facility] Cholesterol 166 <200 mg/dL 10/05/2020 3:02 PM EDT [facility] Comment: < 200 Desirable 200 - 239 Borderline High >= 240 High Triglyceride 134 <150 mg/dL 10/05/2020 3:02 PM EDT [facility], [facility] Comment: < 150 Normal 150 - 199 Borderline High 200 - 499 High >= 500 Very High HDL 49 >=40 mg/dL 10/05/2020 3:02 PM EDT [facility], [facility] Comment: > 60 Optimal 40 - 60 Acceptable < 40 Low LDL Calculated 90 <100 mg/dL 10/05/2020 3:02 PM EDT [facility], [facility] Non-HDL-C Calculated 117 <=129 mg/dL 10/05/2020 3:02 PM EDT [facility] [employer], [facility] Comment: <130 Desirable 130-159 Above Desirable 160-189 Borderline High 190-219 High >= 220 Very High Fasting Specimen? Yes None 021 3:02 PM EDT [facility] Blood VENOUS BLOOD / Unknown Venipuncture / Unknown 10/05/2020 8:42 AM EDT 10/05/2020 8:42 AM EDT us Referring Nonstaff CHEMISTRY ORDERABLES Final Re sult [facility] [employer] , [place] [address] [facility] [address] [place], [place] [id number] * (ABNORMAL) HEMOGLOBIN A1C (10/05/2020 8:42 AM EDT) [facility] Hgb A1C 7.1(H) 4.2 - 5.6 % 10/05/2020 4:12 PM EDT [facility], [facility] Est. Avg Glucose 157 mg/dL 10/05/2020 4:12 PM EDT [facility] [employer], [facility] Blood VENOUS BLOOD / Unknown Venipuncture / Unknown 10/05/2020 8:42 AM EDT 10/05/2020 8:42 AM EDT Narrative [facility] [employer], [facility] - 10/05/2020 4:12 PM EDT REFERENCE RANGE: Normal: 4.0-5.6% Pre-diabetes: 5.7-6.4% Provisional diagnosis of diabetes: >6.4% Hgb F>10% and anything which shortens red cell survival, such as hemolytic anemia, or unstable hemoglobin variants such as HbSS, HbSC, or HbCC, will lower the HbA1c value associated with a given level of glycemic control. us Referring Nonstaff CHEMISTRY ORDERABLES Final Re sult [facility], [employer] [address] [facility], [place] [address] * MICROALBUMIN/CREATININE RATIO URINE (11/06/2016 9:00 AM EDT) Urine Albumin <12.0 mg/L [facility] Urine Creatinine 115.9 mg/dL [facility] Ur Albumin/Creat See Footnote 0 - 30 [facility] Comment:Unable to calculate due to value outside linearity. Urine specimen (specimen) 11/06/2016 9:00 AM EDT 11/06/2016 2:35 PM EDT us Noel Haynes MD URINE ORDERABLES Final Result Performing Organization Address [facility] [[email or web address]] Co de Phone Number [facility] [address] [place] [address] * HEPATITIS C ANTIBODY - SCREENING (07/31/2016 2:12 PM EST) Hep C Ab Negative Negative [facility] Blood specimen (specimen) UPPER LIMB STRUCTURE / Unknown 07/31/2016 2:12 PM EST 07/31/2016 8:09 PM EST us Noel Haynes MD HEMATOLOGY ORDERABLES Final Resu lt Performing Organization Address [facility] [[email or web address]] Co de Phone Number [facility] [address] [place] [address] * HM MAMMOGRAPHY (03/03/2016) us Historical Provider HEALTH MAINTENANCE Final Res ult SEP OFFICE from Last 3 Months or Most Recently Relevant to Health Maintenance Insurance [facility] PPO ANTHEM PPO [facility] EFRA[facility]N WC [facility] Care Teams Special Delivery Mail Carrier Relationship Specialty Start Date End Date China Medrano MD [address] [facility] [address] [place] [address] PCP - General Student in an Organized Health Care Education/Training Program 08/22/22
--- OUTSIDE RECORDS SUMMARY | 2025-05-25 11:48 | XMS_ITS | Encounter Summary ---
Author Organization [facility] Address [address] [place] [address] Care Team Providers Care Robotics Testing Technician Name Role Phone China Medrano MD Primary Care Provider [phone] Adria Hernandez MD Unavailable Unavailab Ashvin Holly MD Unavailable [phone] Reason for Visit * Reason Comments Medications Refill Encounter Details Date Type Department Care Team (Late st Contact Info) Description 12/03/2023 Refill [facility] Physicians - Primary Care, [address] [address] China Medrano MD [address] [place] [id number] Medications Refill Social History Tobacco Use Types Packs/Day Years Used Date Smoking Tobacco: Never Smokeless Tobacco: Never Alcohol Use Standard Drinks/Week Comments No 0 (1 standard drink = 0.6 oz pur e alcohol) PHQ-2 Answer Date Recorded PHQ-9 Auto Total 0 08/16/2022 Comments No Sex and Gender Information Value [...] Noted Time PHQ-9 Depression Total Score: 1 08/17/19 23 4:27 PM EDT documented as of this encounter Care Teams Robotics Testing Technician Relationship Specialty Start Date End Date China Medrano MD PCP - General Family Medicine 08/22/21 Adria Hernandez MD Family Medicine 09/11/21 Ashvin Llanos MD [address] [facility] [place] [address] Urology 06/10/22 documented as of this encounter
--- OUTSIDE RECORDS SUMMARY | 2025-05-25 11:48 | XMS_ITS | Encounter Summary ---
Author Organization [facility] Address [address] [place] [address] Care Team Providers Care Ground Water Technician Name Role Phone Chay Gandhi MD Primary Care Provider [phone] Reason for Visit * Reason Comments Med Refill Encounter Details Date Type Department Care Team (Late st Contact Info) Description 04/04/2020 Refill [facility] FAMILY [facility] [address] [facility] [place] [address] Alex Gonzalez PA [address] [facility] [place] [address] Type 2 diabetes mellitus without complication, without long-term current use of insulin Social History Tobacco Use Types Packs/Day Years Used Date Smoking Tobacco: Never Smokeless Tobacco: Never Alcohol Use Standard Drinks/Week Comments No 0 (1 standard drink = 0.6 oz pur e alcohol) Comments Unknown Sex and Gender Information Value Date Recorded Sex Assigned at Not on file Legal Sex Female 1:03 PM EDT Gender Identity Not on file Sexual Orientation Not on file documented as of this encounter Plan of Treatment Not on file documented as of this encounter Visit Diagnoses Diagnosis Type 2 diabetes mellitus without complication, without long-term current use of insulin documented in this encounter Care Teams Ground Water Technician Relationship Specialty Start Date End Date Chay Gandhi MD [address] [facility] [place] [address] PCP - General Family Medicine 09/05/20 documented as of this encounter
--- OUTSIDE RECORDS SUMMARY | 2025-05-25 11:48 | XMS_ITS | Clinical Summary ---
Author Organization [facility] Address [address] [place] [address] Care Team Providers Care Shader And Toner Name Role Phone Lorena Osborn DO Primary Care Provider [phone] Allergies Active Allergy Reactions Criticality Noted Date Comments Codeine Not Recorded 01/02/2016 Erythromycin Not Recorded 01/02/2016 Gentamicin Not Recorded 01/02/2016 Levofloxacin Not Recorded 01/02/2016 Penicillins Not Recorded 01/02/2016 Prednisone Not Recorded 01/02/2016 Butorphanol Not Recorded 01/02/2016 Medications aspirin 81 MG TBEC Take 81 mg by mouth daily. Active paroxetine (PAXIL) 20 MG TABS Take 10 mg by mouth every morning. Active lisinopril (PRINIVIL,ZESTRI L) 10 MG TABS Take 10 mg by mouth daily. Active albuterol 108 (90 BASE) MCG/ACT AERS Use 2 puffs every 6 (six) hours as needed. Active Cetirizine HCl (ZYRTEC ALLERGY PO) Take by mouth. Active estradiol (ESTRACE) 0.5 MG TABS Take 1 tablet by mouth daily. 30 tablet 12 04/29/2018 Active estradiol (ESTRACE) 0.5 MG TABS Take 1 tablet by mouth daily. 30 tablet 11 04/29/2018 Active Active Problems Problem Noted Date Diagnosed Date Menopausal symptoms 10/09/2016 Family History Medical History Relation Name Comments Diabetes Brother Hypertension Brother Kidney Disease Brother Arthritis Father Cancer Father Diabetes Father Heart Disease Father Hypertension Father Prostate cancer Father Asthma Mother Breast cancer Mother in her 70's Cancer Mother Hypertension Mother Kidney Disease Mother Ovarian cancer Neg Hx Relation Name Status Comments Brother Father Alive Mother Alive Social History Tobacco Use Types Packs/Day Years Used Date Smoking Tobacco: Never Smokeless Tobacco: Never Alcohol Use Standard Drinks/Week Comments No 0 (1 standard drink = 0.6 oz pur e alcohol) Comments No Sex and Gender Information Value Date Recorded Sex Assigned at Not on file Legal Sex Female 12:55 AM EDT Gender Identity Not on file Sexual Orientation Not on file Last Filed Vital Signs Vital Sign Reading Time Taken Comments Blood Pressure 110/80 03/18/2018 1:42 PM EDT Pulse - - Temperature - - Respiratory Rate - - Oxygen Saturation - - Inhaled Oxygen Concentration - - Weight 78.2 kg (172 lb 6.4 oz) 03/18/2018 1:42 P M EDT Height 154.9 cm (5' 1 ) 03/18/2018 1:42 PM EDT Body Mass Index 32.57 03/18/2018 1:42 PM EDT Plan of Treatment Health Maintenance Due Date Last Done Comments Hepatitis C Screening 1965 Colonoscopy 2010 Pneumococcal 50+ (2 of 2 - PCV) 2015 08/03/2011, 06/03/2011 Shingrix (#1) 2015 Mammogram Screening 10/19/2019 10/18/2018, 01/11/2016, 01/09/2016 Pap Screening 03/18/2021 03/18/2018 DTap,Tdap,and Td (2 - Td or Tdap) 11/12/2021 11/13/2011 COVID-19 Vaccine ( season) 2025 08/26/2020, 08/08/2020 Influenza Vaccine (#1) 2025 9, 05/04/2019, 04/12/2017, Additional history exists RSV Vaccine (60+ or ) (1 - 1-dose 75+ series) 2040 Pneumococcal 0-49 Discontinued 08/03/2011, 06/03/2011 HPV Aged Out No longer eligi ble based on patient's age to complete this topic Meningococcal conjugate valent 4 (MCV4) Aged Out No longer eligible based on patient's age to complete this topic RSV Immunization (<20 months) Aged Out No longer eligible based on patient's age to complete this topic Procedures Procedure Name Priority Date/Time Associated Diagnosis Comments [facility] SCR BILAT ERROL Routine 10/18/2018 1: 32 PM EDT Breast screening CYTOLOGY KEYBOARD OPERATOR Today 03/18/2018 2:24 PM EDT Encounter for gynecological examination without abnormal finding from Last 3 Months or Most Recently Relevant to Health Maintenance Results * [facility] SCR JOSE C DIG CAD ERROL (10/18/2018 1:32 PM EDT) Anatomical Region Laterality Modality Chest Bilateral Mammography 10/19/2018 8:54 PM EDT Impressions 10/19/2018 8:55 PM EDT No mammographic evidence of malignancy CATEGORY BI-RADS: 1: Negative MANAGEMENT: Routine annual mammography unless otherwise clinically indicated NOTE: The breast center staff will notify the patient of the results. If there are questions about the content of this report, please contact [facility] radiology by calling [phone]. RISK ASSESSMENT: A preliminary breast cancer risk assessment was conducted as part of the patient's screening mammogram visit. If there are any questions about the risk assessment process or results, a navigator can be contacted at [phone]. Patient's lifetime Davida model risk: 8.6% (20% and greater considered high risk) [facility] Family History Risk Score: 0 (1 and greater considered high risk) Narrative 10/19/2018 8:55 PM EDT SCREENING DIGITAL BILATERAL MAMMOGRAM WITH COMPUTER AIDED DETECTION AND TOMOSYNTHESIS HISTORY: Routine annual screening COMPARISON: 2016 mammograms TECHNIQUE: Bilateral mediolateral oblique and craniocaudal views with computer aided detection and tomosynthesis BREAST COMPOSITION: The breasts are heterogeneously dense, which may obscure small masses FINDINGS: No suspicious masses, suspicious microcalcifications or areas of nonsurgical architectural distortion identified. Right breast skin marker. Gunjan Lee MD [facility] Final Result * CYTOLOGY KEYBOARD OPERATOR (03/18/2018 2:24 PM EDT) CYTOLOGY-KEYBOARD OPERATOR CYTOLOGY GYNECOLOGICAL REPORT Name: JEREL SOTO EPI#: [id number] Case #: [id number] Final Cytologic Diagnosis A. Vaginal thinprep pap: Adequacy: Satisfactory for evaluation. Interpretation: Negative for intraepithelial lesion or malignancy. This specimen has been analyzed by the ThinPrep Imaging System (Koinify.), an automated imaging and review system, which assists the optical engineering technician and/or pathologist in evaluation of cells on Thinprep Pap tests. Electronically Signed Out By Chandra Cummings Source of Specimen(s) A: Vaginal thinprep pap Clinical History Menstrual History: Hysterectomy Microscopic Description {Not Entered} Signed out at [facility], [address] [place] [address] [facility] Laboratories Non-Formatted Report [facility] 03/18/2018 2:24 PM EDT 03/19/2018 9:09 AM EDT Comment:VAGINAL THINPREP PAP Gunjan Lee MD PATHOLOGY/CYTOLOGY ORDERABLE S Final Result Performing Organization Address City/State/[facility] Co de Phone Number [facility] [address] [phone] from Last 3 Months or Most Recently Relevant to Health Maintenance Insurance BLUE CROSS ALL OTHERS NOT MEDICARE Care Teams Shader And Toner Relationship Specialty Start Date End Date Lorena Osborn DO PCP - General Family Medicine 10/16/18
--- OUTSIDE RECORDS SUMMARY | 2025-05-25 11:48 | XMS_ITS | Clinical Summary ---
[facility] Address [address] [place] [id number] Care Team Providers Care Regional Cra Name Role Phone Chay Gandhi MD Primary Care Provider [phone] Allergies Active Allergy Reactions Criticality Noted Date Comments Butorphanol Itching 11/20/2016 sweaty Butorphanol Tartrate Hallucinations 03/28/2011 Psychotic episode-hallucina tions Codeine Nausea And Vomiting 03/28/2011 Erythromycin Nausea And Vomiting 03/28/2011 Gentamicin Swelling 03/28/2011 Lips swelled Hydrochlorothiazide Dizziness 11/20/2016 Dizzy, hypotension Hydromorphone Itching 11/20/2016 Sweaty & itchy Levofloxacin Rash Low 03/28/2011 thrush Metformin Diarrhea 11/20/2016 Methylprednisolone Sodium Succ Palpitations Low 03/28/2011 Heart racing - chest pain Other Itching Medium 04/02/2011 Plastic non-allergic tape (micro pore tape) - causes blisters Oxycodone Nausea Only 11/20/2016 Will take if pain is too bad Penicillins Rash Low 03/28/2011 Prednisone Palpitations Low 03/28/2011 Heart race Medications diphenhydrAMINE (BENADRYL) 25 mg capsule Take 25 mg by mouth Every 6 (Six) Hours As Needed for Itching. Active cholecalciferol (VITAMIN D3) 1000 units tablet Take 1,000 Units by mouth Daily. Active aspirin (aspirin) 81 MG EC tablet Take 81 mg by mouth. Active cetirizine (zyrTEC) 10 MG tablet Take 10 mg by mouth Daily. Active atorvastatin (Lipitor) 10 MG tabletIndications :Hypercholesterol emia Take 1 tablet by mouth Daily. 90 tablet 1 02/24/2021 Active albuterol sulfate HFA (ProAir HFA) 108 (90 Base) MCG/ACT inhalerIndication s:Moderate persistent asthma, unspecified whether complicated 1-2 puffs every 4-6 hours as neede 24 g 2 03/01/2021 Active glipizide (GLUCOTROL) 10 MG tabletIndications :Type 2 diabetes mellitus without complication, without long-term current use of insulin TAKE 1 TABLET BY MOUTH TWICE A DAY BEFORE MEALS 180 tablet 05/15/2021 Active lisinopril (PRINIVIL,ZESTRIL ) 10 MG tabletIndications :Essential hypertension TAKE 1 TABLET DAILY. 90 tablet 11/09/2021 Active Januvia 100 MG tabletIndications :Type 2 diabetes mellitus without complication, without long-term current use of insulin TAKE 1 TABLET DAILY. 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 09/01/2015 Pelvic inflammatory disease 04/02/2011 Major depressive disorder, recurrent, in full re mission 08/21/2010 Asthma 04/18/2006 Overview (02/17/2021): ICD-10 Transition Calcium oxalate renal stones 04/18/2006 Immunizations Immunization Administration Dates Next Due Fluzone (or Fluarix & Flulav al for VFC) >6mos 05/04/2019 Influenza Split Preservative Free ID 07/31/2016 Influenza, Unspecified 04/07/2017,03/03/2015, PPD Test 05/04/2013 Pneumococcal Polysaccharide (PPSV23) 08/03/2011, 06/03/2011 Tdap 11/13/2011 Family History Medical History Relation Name Comments Diabetes Brother Hypertension Brother Cancer Father throat, prostat e Diabetes Father Hypertension Father Cancer Mother breast Relation Name Status Comments Brother Father Mother Social History Tobacco Use Types Packs/Day Years Used Date Smoking Tobacco: Never Smokeless Tobacco: Never Alcohol Use Standard Drinks/Week Comments No 0 (1 standard drink = 0.6 oz pur e alcohol) Abuse Screen Answer Date Recorded Unsafe at Home or Work/School Not on file Feels Threatened by Someone? Not on file 04/2023 Does Anyone Keep You from Co ntacting Others or Doint Things Outside the Home? Not on file 03/13/2023 Physical Sign of Abuse Present Not on file 1 Housing Stability Answer Date Recorded Current Living Arrangements Not on file 03/03 Potentially Unsafe Housing Conditions Not on eleazar e 03/13/2023 Family and Community Support Answer Kelvin e Recorded Help with Day-to-Day Activities Not on file 03/13/2023 Lonely or Isolated Not on file 03/13/2023 Employment Answer Date Recorded Do you want help finding or keeping work or a mason b? Not on file 03/13/2023 Disabilities Answer Date Recorded Concentrating, Remembering, or Making Decisions Difficulty Not on file 03/13/2023 Doing Errands Independently Difficulty Not on fi le 03/13/2023 Education Answer Date Recorded Help with school or training? Not on file Preferred Language Not on file 03/13/2023 Comments Unknown Sex and Gender Information Value Date Recorded Sex Assigned at Not on file Legal Sex Female 1:03 PM EDT Gender Identity Not on file Sexual Orientation Not on file Last Filed Vital Signs Vital Sign Reading Time Taken Comments Blood Pressure 120/76 02/17/2021 10:50 AM EDT Pulse 72 02/17/2021 10:50 AM EDT Temperature 37.2 C (98.9 F) 02/17/2021 10:50 AM EDT Respiratory Rate 18 02/17/2021 10:50 AM EDT Oxygen Saturation 99% 10/19/2019 12:00 PM EDT Inhaled Oxygen Concentration - - Weight 75.3 kg (166 lb) 02/17/2021 10:50 AM EDT Height 153 cm (5' 0.25 ) 02/17/2021 10:50 AM EDT Body Mass Index 32.15 02/17/2021 10:50 AM EDT Plan of Treatment Health Maintenance Due Date Last Done Comments Annual Gynecologic Pelvic an d Breast Exam 1965 COLOGUARD 2010 COLON CANCER SCREENING 5 YEA R SIGMOIDOSCOPY 2010 CT COLONOGRAPHY 2010 FECAL OCCULT BLOOD TEST 2010 FIT Testing (1 year) 2010 Pneumococcal Vaccine 50+ (2 of 2 - PCV) 2015 08/03/2011, 06/03/2011 ANNUAL PHYSICAL 04/10/2018 MAMMOGRAM 10/18/2020 10/18/2018 TDAP/TD VACCINES (2 - Td or Tdap) 11/12/2021 012 LIPID PANEL 02/17/2022 02/17/2021, 05/0 10/2020, 10/05/2020, Additional history exists INFLUENZA VACCINE 01/01/2025 05/04/2019, (Patient-Reported (Performed Externally)), 04/10/2018 (Declined), Additional history exists COLONOSCOPY 09/01/2025 09/02/2015 (Jaimee ent-Reported (Performed Externally)) COLORECTAL CANCER SCREENING 09/01/2025 HEPATITIS C SCREENING Completed 04/11/2018 HEMOGLOBIN A1C Discontinued 02/17/2021, 05/0 10/2020, 10/05/2020, Additional history exists [facility] Discontinued ZOSTER VACCINE Discontinued Procedures Procedure Name Priority Date/Time Associated Diagnosis Comments HEMOGLOBIN A1C Routine 02/17/2021 11:31 AM EDT Type 2 diabetes mellitus without complication, without long-term current use of insulin LIPID PANEL Routine 02/17/2021 11:31 AM EDT Hypertriglyceridemi a HEPATITIS C ANTIBODY Routine 04/11/2018 8:45 AM EST Need for hepatitis C screening test from Last 3 Months or Most Recently Relevant to Health Maintenance Results * (ABNORMAL) Hemoglobin A1c (02/17/2021 11:31 AM EDT) Hemoglobin A1C 7.40(H) 4.80 - 5.60 % [facility] Comment: Hemoglobin A1C Ranges: Increased Risk for Diabetes 5.7% to 6.4% Diabetes >= 6.5% Diabetic Goal < 7.0% Blood 02/17/2021 11:3 1 AM EDT 02/17/2021 Narrative [facility]) - 02/18/2021 3:07 AM EDT Performed at: [address] [place] [id number] Clinical Material Handler: Lauro Humphrey MD, Phone: [phone] Patient Fasting: Y us Chay Gandhi MD LAB BLOOD ORDERABLES Final Resu lt [facility] ([facility]AT[facility]) [address] [place] [address], [facility] [address] [place] [address], * (ABNORMAL) Lipid Panel (02/17/2021 11:31 AM EDT) [facility] Total Cholesterol 180 0 - 200 mg/dL [facility] Comment: Cholesterol Reference Ranges (U.S. Department of Health and Human Services ATP III Classifications) Desirable <200 mg/dL Borderline High 200-239 mg/dL High Risk >240 mg/dL Triglyceride Reference Ranges (U.S. Department of Health and Human Services ATP III Classifications) Normal <150 mg/dL Borderline High 150-199 mg/dL High 200-499 mg/dL Very High >500 mg/dL HDL Reference Ranges (U.S. Department of Health and Human Services ATP III Classifcations) Low <40 mg/dl (major risk factor for CHD) High >60 mg/dl ('negative' risk factor for CHD) LDL Reference Ranges (U.S. Department of Health and Human Services ATP III Classifcations) Optimal <100 mg/dL Near Optimal 100-129 mg/dL Borderline High 130-159 mg/dL High 160-189 mg/dL Very High >189 mg/dL Triglycerides 115 0 - 150 mg/dL [facility] HDL Cholesterol 53 40 - 60 mg/dL [facility] VLDL Cholesterol Leland 21 5 - 40 mg/dL [facility] LDL Chol Calc (NIH) 106(H) 0 - 100 mg/dL [facility] Blood 02/17/2021 11:3 1 AM EDT 02/17/2021 Narrative [facility] - 02/18/2021 3:07 AM EDT Performed at: [address] [id number] Clinical Material Handler: Lauro Humphrey MD, Phone: [phone] Patient Fasting: Y Chay Gandhi MD LAB BLOOD ORDERABLES Final Resu lt Performing Organization Address City/[facility]/ZIP Co de Phone Number [facility] [address] [place] [address], [facility] [address] [place] [address], * Hepatitis C antibody (04/11/2018 8:45 AM EST) [facility] Hep C Virus Ab 0.2 0.0 - 0.9 s/co ratio [facility] Comment: Negative: < 0.8 Indeterminate: 0.8 - 0.9 Positive: > 0.9 The CDC recommends that a positive HCV antibody result be followed up with a HCV Nucleic Acid Amplification test (520181). Blood 04/11/2018 8:45 AM EST 04/11/2018 Narrative [facility] (AMBUL[facility]) - 04/12/2018 7:11 AM EST Performed at: 02 [facility] [address] [place] [id number] Clinical Material Handler: Sahmar Watson PhD, Phone: [phone] Patient Fasting: Y Lorena Osborn DO LAB BLOOD ORDERABLES Final Result Performing Organization Address [facility] de Phone Number [facility] (AMBULATORY) [address] [place] [address], [facility] [address] [place] [address], from Last 3 Months or Most Recently Relevant to Health Maintenance Insurance Care Teams Regional Cra Relationship Specialty Start Date End Date Chay Gandhi MD [address] [place] [address] PCP - General Family Medicine 09/05/20
--- OUTSIDE RECORDS SUMMARY | 2025-05-25 11:48 | XMS_ITS | Encounter Summary ---
Author Organization [facility] Address [address] [place] [address] Care Team Providers Care Validation Intern Name Role Phone China Medrano MD Primary Care Provider [phone] Adria Hernandez MD Unavailable Unavailab Maddison Au RN Unavailable [phone] Ashvin Llanos MD Unavailable [phone] Reason for Visit * Reason Onset Date Comments Medications Refill 01/25/2022 Encounter Details Date Type Department Care Team (Late st Contact Info) Description 01/25/2022 Ref[facility] [address] [place] [address] Adria Hernandez MD Medications Refill Social History Tobacco Use Types [...] Assessment Author No 09/09/2013 11:10 PM EDT Susnane Simon RN * Because of a physical, [...] documented as of this encounter Care Teams Validation Intern Relationship Specialty Start Date End Date China Medrano MD PCP - General Family Medicine 08/22/21 Adria Hernandez MD Family Medicine 09/11/21 Maddison Foley, FELICIA [address] [place] [address] Patternmaker Pressure Cast 04/12/22 04/13/22 Ashvin Llanos MD [address] [place] [address] Urology 06/10/22 documented as of this encounter
--- OUTSIDE RECORDS SUMMARY | 2025-05-25 11:48 | XMS_ITS | Encounter Summary ---
[facility] Address [address] [place] [address] Care Team Providers Care User Acceptance Tester Name Role Phone Chay Gandhi MD Primary Care Provider [phone] Reason for Visit * Reason Onset Date Comments Med Refill 01/07/2020 Encounter Details Date Type Department Care Team (Late st Contact Info) Description 01/07/2020 Refill [facility] [address] [place] [id number] Alex Gonzalez PA [address] [place] [address] Essential hypertension Social History Tobacco Use Types Packs/Day Years [...] as of this encounter Visit Diagnoses Diagnosis Essential hypertension Unspecified essential hypertension documented in this encounter Care Teams User Acceptance Tester Relationship Specialty Start Date End Date Chay Gandhi MD [address] [place] [address] PCP - General Family Medicine 09/05/20 documented as of this encounter
--- OUTSIDE RECORDS SUMMARY | 2025-05-25 11:48 | XMS_ITS | Clinical Summary ---
Author Organization [facility] Address [address] [place] [address] Care Team Providers Care Practice Specialist Name Role Phone Nii Umanzor MD Primary Care Provider [phone] Source Comments This information has been disclosed to you from confidential records protectedfrom disclosure by state law. You shall make no further disclosure of thisinformation without the specific, written, and informed release of theindividual to whom it pertains, or as otherwise permitted by law. A generalauthorization for the release of medical or other information is not sufficientfor the purposes of therelease of HIV test results or diagnoses. [id number] Active Problems Problem Noted Date Diagnosed Date Asthma 04/18/2006 Overview (03/03/2015): ICD-10 Transition Calculus of kidney 04/18/2006 Hematuria 04/18/2006 Arthropathy 04/18/2006 Overview (03/03/2015): ICD-10 Transition Headache 04/18/2006 Overview (03/03/2015): ICD-10 Transition Social History Tobacco Use Types Packs/Day Years Used Date Smoking Tobacco: Never Assessed Comments Unknown Sex and Gender Information Value Date Recorded Sex Assigned at Not on file Legal Sex Female 4:23 PM EST Gender Identity Not on file Sexual Orientation Not on file Plan of Treatment Not on file Insurance BLUE ACCESS Care Teams Practice Specialist Relationship Specialty Start Date End Date Nii Umanzor MD [facility]: [address] [place] [address] PCP - General 10/21/06
--- OUTSIDE RECORDS SUMMARY | 2025-05-25 11:48 | XMS_ITS | Encounter Summary ---
Author Organization [facility] Address [address] [place] [address] Care Team Providers Care Carton Making Machine Operator Name Role Phone China Medrano MD Primary Care Provider [phone] Adria Hernandez MD Unavailable Unavailab Ashvin Holly MD Unavailable [phone] Reason for Visit * Reason Comments Medications Refill Encounter Details Date Type Department Care Team (Late st Contact Info) Description 06/22/2023 Refill [facility] Physicians - Primary Care, [address] [address] China Medrano MD [address] [place] [address] Medications Refill Social History Tobacco Use [...] documented as of this encounter Visit Diagnoses Not on filedocumented in this encounter Additional Health Concerns Assessment Noted Time PHQ-9 Depression Total Score: 1 08/17/19 23 4:27 PM EDT documented as of this encounter Care Teams Carton Making Machine Operator Relationship Specialty Start Date End Date China Medrano MD PCP - General Family Medicine 08/22/21 Adria Hernandez MD Family Medicine 09/11/21 Ashvin Llanos MD [address] [facility] [place] [address] Urology 06/10/22 documented as of this encounter
--- OUTSIDE RECORDS SUMMARY | 2025-05-25 11:48 | XMS_ITS | Clinical Summary ---
Author Organization [facility] Address [address] [place] [address] Care Team Providers Care Claims Support Specialist Name Role Phone China Medrano MD Primary Care Provider [phone] Adrai Hernandez MD Unavailable Unavailab Ashvin Holly MD Unavailable Allergies Active Allergy Reactions Criticality Noted Date Comments Butorphanol Itching 11/20/2016 sweaty Codeine Nausea And Vomiting 03/28/2011 Covid-19 Vacc,Mrna(Pfizer)(Pf) Anaphylaxis 05/29/2021 Erythromycin Nausea And Vomiting 03/28/2011 Gentamicin 03/28/2011 Lips swelled Hydrochlorothiazide 11/20/2016 Dizzy, hypotension Hydromorphone 11/20/2016 Sweaty & itchy Levofloxacin Rash 03/28/2011 thrush Metformin Diarrhea 11/20/2016 Neuromuscular Blockers, Steroidal 03/28/2011 Epidural injection caused racing heart Other Itching Medium 04/02/2011 Plastic non-allergic tape (micro pore tape) - causes blisters Oxycodone Nausea Only 11/20/2016 Will take if pain is too bad Penicillins Rash 03/28/2011 Prednisone 03/28/2011 Heart race Methylprednisolone Sodium Succ 03/28/2011 Heart racing - chest pain Butorphanol Tartrate 03/28/2011 Psychotic episode-hallucinat ions Medications aspirin 81 mg PO TbEC Take 81 mg by mouth daily. Active cetirizine (ZYRTEC) 10 mg PO Tab Take 10 mg by mouth every evening. Active Melatonin 3 mg Tablet Take 3 mg by mouth give at bedtime as needed. Active Cholecalciferol, Vitamin D3, 125 mcg (5,000 unit) Tablet Take 125 mcg by mouth daily as needed. Active acetaminophen (TYLENOL EX STR RAPID RELEASE PO) Take 2 Tablets by mouth every 4 to 6 hours as needed. Active albuterol (PROVENTIL) 2.5 mg /3 mL (0.083 %) nebulization 3 mL (2.5 mg total) by Nebulization route every 4 hours as needed for Wheezing. 75 mL 08/24/19 Active omeprazole (PRILOSEC) 20 mg capsule TAKE 1 CAPSULE BY MOUTH EVERY DAY 30 Capsule 2 10/05/19 22 Active Additional Information Patient not taking.Reported on 08/16/2022 fluticasone propionate (Flovent HFA) 44 mcg/Puff HFA Aerosol Inhaler Take 2 Puffs by inhalation 2 times daily. 3 Each 1 10/25/19 22 Active meloxicam (MOBIC) 7.5 mg tablet Take 7.5 mg by mouth. 06/01/20 22 Active SITagliptin phosphate (JANUVIA) 100 mg TabletIndications :Type 2 diabetes mellitus without complication, without long-term current use of insulin (CMS/HCC) Take 1 Tablet by mouth daily. 90 Tablet 08/17/19 23 Active glipiZIDE (GLUCOTROL) 10 mg CR tabletIndications :Uncontrolled type 2 diabetes mellitus with hyperglycemia (CMS/HCC) TAKE 1 TABLET BY MOUTH EVERY DAY 90 Tablet 3 12/20/19 23 Active lisinopriL (ZESTRIL) 10 mg tablet TAKE 1 TABLET BY MOUTH EVERY DAY IN THE EVENING 90 Tablet 1 02/19/20 23 Active Active Problems Problem Noted Date Diagnosed Date Mild intermittent asthma 09/11/2021 Uncontrolled type 2 diabetes mellitus with hyper glycemia 09/11/2021 Hypertriglyceridemia 07/14/2018 Essential hypertension 07/14/2018 Malignant carcinoid tumor of appendix 09/09/2013 Resolved Problems Problem Noted Date Diagnosed Date Resolved Date Viral gastroenteritis 08/21/20212021 Acute upper respiratory infe ction, unspecified 08/21/2021 09/11/2021 Dehydration, mild 08/21/2021 09/11/2021 Type 2 diabetes mellitus without complication 08/29/19 13 09/11/2021 Overview (03/03/2025): 07/20: Risks/benefits of empiric statin discussed/declined. IMO Regulatory update for diagnosis 03/03/25 Kidney stone 07/31/2012 09/11/2021 Anemia associated with acute blood loss 04/03/2011 09/11/2021 TOA (tubo-ovarian abscess) 04/02/2011 0 09/11/2021 Pelvic inflammatory disease 04/02/2011 09/11/2021 Abdominal adhesions 04/02/2011 10/25/19 22 Allergic rhinitis 06/27/2010 11/18/2021 Immunizations Immunization Administration Dates Next Due [id number] Vaccine 12+YRS Old (PFIZER Pu rple) 08/26/2020,08/08/2020 Influenza 05/04/2019 Influenza (whole) 05/04/2019 Pneumococcal Polysaccharide 23 Valent (PNEUMOVAX ) 08/03/2011,06/03/2011 Tdap 11/13/2011 Family History Medical History Relation Name Comments Cancer Father throat cancer Heart Problems Father [place], artherios cleosis, PVD Asthma Mother Breast Cancer Mother Kidney Disease Mother Anesthesia Complications Neg Hx Relation Name Status Comments Father Alive Maternal Grandfather Maternal Grandmother Mother Alive Paternal Grandfather Paternal Grandmother Social History Tobacco Use Types Packs/Day Years [...] Orientation Straight 05/29/2021 3: 40 PM EST Last Filed Vital Signs Vital Sign Reading Time Taken Comments Blood Pressure 130/72 10/24/2021 11:29 AM EDT Pulse 100 08/16/2022 4:24 PM EDT Temperature 36.7 C (98 F) 08/16/2022 4:24 PM EDT Respiratory Rate 16 08/27/2021 1:57 AM EDT Oxygen Saturation 96% 08/16/2022 4:24 PM EDT Inhaled Oxygen Concentration - - Weight 77.1 kg (170 lb) 08/16/2022 4:24 PM EDT Height 152.4 cm (5') 08/16/2022 4:24 PM EDT Body Mass Index 33.2 08/16/2022 4:24 PM EDT Plan of Treatment Health Maintenance Due Date Last Done Comments Colonoscopy 1965 FIT 1965 Pneumococcal Vaccine: 50+ Ye ars (2 of 2 - PCV) 08/02/2012 08/03/2011, 06/03/2011 Zoster-RZV(Shingrix) (1 of 2) 2015 Tetanus Vaccination (Every 1 0 Years) 11/12/2021 11/13/2011 Diabetes A1c Monitoring 03/16/2022 09/15/19 22, 05/29/2021, 09/11/2013, Additional history exists Diabetes Mellitus Foot Care (Yearly) 09/12/2022 09/12/2021 Lipid Monitoring 09/14/2022 09/14/2021 Diabetes Mellitus Eye Exam (Yearly) 03/24/2023 03/24/2022, 05/01/2017 Breast Cancer Screening 11/07/2023 11/06/2021 Cologuard 06/01/2024 06/01/2021 Colorectal Cancer Screening 06/01/2024 Depression Screening 06/03/2024 08/16/2022, 05/29/20 21 Diabetes Mellitus Microalbum in (Yearly) 06/03/2024 05/29/2021 Renal Monitoring 06/03/2024 03/27/2023, , 08/23/2021, Additional history exists COVID-19 Vaccine (3 - 2024-2 6 season) 2025 08/26/2020, 08/08/2020 RSV Vaccines (1 - 1-dose 75+ series) 2040 Influenza Vaccination (Yearly) Discontinued 05/04/2019 , 05/04/2019 Influenza Vaccination Discontinued 05/04/2019, 019 Hepatitis C Virus (HCV) Screening Completed 021, 07/31/2016 Lipid Screening Discontinued 09/14/2021 Medical Devices Implanted Type Area Hydrography Teacher Device Identifier Shelf Expiration Date Model / Serial / Lot Stent Uret Dbl Pig 6fr 22cm Implanted:Qty: 1 on 04/02/2011 at [facility] 8 OR Right: Ureter * [employer] [id number] / / [id number] Stent Uret Dbl Pig 6fr 24cm Implanted:Qty: 1 on 04/02/2011 at [facility] 8 OR Left: Ureter * [employer] [id number] / / [id number] Procedures Procedure Name Priority Date/Time Associated Diagnosis Comments HBL-BASIC METABOLIC PANEL (BMP=EP1) Routine 03/27/2023 12:33 PM EDT AMB REFERRAL TO OPHTHALMOLOGY Routine 03/24/2022 MAMM-SCREENING W/ERROL Routine 11/06/2021 8:16 AM EDT Encounter for screening mammogram for malignant neoplasm of breast HGB, A1C (GLYCOHEMOGLOBIN) Routine 09/14/2021 7:59 AM EDT Uncontrolled type 2 diabetes mellitus with hyperglycemia LIPID PROFILE Routine 09/14/2021 7:59 AM EDT Hypertriglyceridemia COLOGUARD Routine 06/01/2021 9:30 AM EST Screening for colon cancer ALBUMIN, URINE CREATININE/RATIO Routine 05/29/2021 3:35 PM EST Type 2 diabetes mellitus without complication, without long-term current use of insulin from Last 3 Months or Most Recently Relevant to Health Maintenance Results * (ABNORMAL) HBL-BMP (03/27/2023 12:33 PM EDT) Sodium 139 136 - 145 mmol/L [facility] Comment:Sodium [Moles/volume ] in Serum or Plasma Potassium 4.1 3.5 - 5.0 mmol/L [facility] Comment:Potassium [Moles/vol ume] in Serum or Plasma Chloride 102 98 - 107 mmol/L [facility] Comment:Chloride [Moles/volu me] in Serum or Plasma CO2 23 22 - 29 mmol/L [facility] Comment:Carbon dioxide, tota l [Moles/volume] in Serum or Plasma Anion Gap 14 7 - 16 mmol/L Comment:Anion gap in Serum o r Plasma Calcium 9.2 8.6 - 10.4 mg/dL Comment:Calcium [Mass/volume ] in Serum or Plasma Glucose 175(H) 74 - 100 mg/dL [facility] Comment:Glucose [Mass/volume ] in Serum or Plasma BUN 18 6 - 20 mg/dL Comment:Urea nitrogen [Mass/ volume] in Serum or Plasma Creatinine 0.86 0.51 - 1.30 mg/dL Comment:Creatinine [Mass/vol ume] in Serum or Plasma Estimated Glomerular Filtration rate (eGFR) 78 >=60 mL/min/1.7 3 m2 Comment: Glomerular filtration rate/1.73 sq M.predicted [Volume Rate/Area] in Serum, Plasma or Blood by Creatinine-based formula (CKD-EPI) Estimated GFR was calculated using the CKD-EPIcr (2020) equation refit without race. The equation is recommended by the National Kidney Foundation - [place] [employer]ph[employer] Task Force. 03/27/2023 12:3 3 PM EDT 03/27/2023 6:52 PM EDT [facility] Provider [facility] RESULTABLE ON LY Final Result [facility] * AMB REFERRAL TO OPHTHALMOLOGY (03/24/2022) [facility] Provider OUTPATIENT REFERRAL ORDERABL ES Final Result * MAMM-SCREENING W/ERROL (11/06/2021 8:16 AM EDT) Anatomical Region Laterality Modality Bilateral Mammography 11/06/2021 2:04 PM EDT Impressions 11/06/2021 2:06 PM EDT IMPRESSION: No direct or indirect evidence of malignancy is seen on the current study. BI-RADS CATEGORY: 1 - NEGATIVE RECOMMENDED FOLLOW-UP: Bilateral Follow up mammogram in 1 year Reminder: The patient was entered into a reminder system for annual screening mammography notification. This study was performed and interpreted using full-field digital mammographic and computer-aided detection. The [place] [employer] recommends annual screening mammography for women age 40 and above. Please note that mammography is not 100% accurate in diagnosing breast cancer. A routine breast examination is recommended to correlate with mammographic findings. Signed By: Yandel Estrada MD Narrative 11/06/2021 2:06 PM EDT MAMM-SCREENING W/ERROL REASON FOR EXAMINATION: Screening COMPARISON: October 18, 2018 LIMITATIONS: None. DENSITY: The breast parenchyma is heterogeneously dense, which may obscure small masses. FINDINGS: Computer aided detection assisted in the interpretation of the mammogram. No focal mass, architectural distortion or groupings of suspicious calcifications are seen. Procedure Note Yandel Estrada MD - 11/06/2021 MAMM-SCREENING W/ERROL REASON FOR EXAMINATION: Screening COMPARISON: October 18, 2018 LIMITATIONS: None. DENSITY: The breast parenchyma is heterogeneously dense, which may obscuresmall masses. FINDINGS: Computer aided detection assisted in the interpretation of the mammogram.No focal mass, architectural distortion or groupings of suspiciouscalcifications are seen. IMPRESSION: No direct or indirect evidence of malignancy is seen on the currentstudy. BI-RADS CATEGORY: 1 - NEGATIVE RECOMMENDED FOLLOW-UP: Bilateral Follow up mammogram in 1 year Reminder: The patient was entered into a reminder system for annualscreening mammography notification. This study was performed and interpreted using full-field digitalmammographic and computer-aided detection. The [place] [employer] recommends annual screening mammographyfor women age 40 and above. Please note that mammography is not 100% accurate in diagnosing breastcancer. A routine breast examination is recommended to correlate withmammographic findings. Signed By: Yandel Estrada MD Mary Chu NP IM MAMMO ORDERABLES Final Re sult * (ABNORMAL) LIPID PROFILE (09/14/2021 7:59 AM EDT) Chol/HDL Ratio 3.5 0 - 5 [facility] XTERNAL [facility] Cholesterol 200(H) 125 - 199 mg/dL [facility] EXTERNAL [facility] Comment: TOTAL CHOLESTEROL INTERPRETATION: Less than 200 mg/dL Desireable 200-239 mg/dL Borderline Greater or Equal to 240 mg/dL High LDL Calculated 111(H) 0 - 100 mg/dL [facility] EXTERNAL [facility] Comment: LDL CHOLESTEROL INTERPRETATION: Less than 100 mg/dL Optimal 100-129 mg/dL Near optimal/above optimal 130-159 mg/dL Borderline High 160-189 mg/dL High Greater or Equal to 190 mg/dL Very High HDL 57 40 - 180 mg/dL [facility] EXTERNAL [facility] Comment: HDL CHOLESTEROL INTERPRETATION: Less than 40 mg/dL Low Greater than 60 mg/dL Desirable Triglycerides 162(H) 0 - 149 mg/dL [facility] EXTERNAL [facility] Comment: TOTAL TRIGLYCERIDE INTERPRETATION: Less than 150 mg/dL Normal 150-199 mg/dL Borderline HIgh 200-499 mg/dL High Greater or Equal to 500 mg/dL Very High Serum (Serum) 09/14/2021 7:5 9 AM EDT 09/14/2021 3:23 PM EDT Adria Hernandez MD CHEMISTRY ORDERABLES Final Result [facility] EXTERNAL [facility] [address] * (ABNORMAL) HGB, A1C (GLYCOHEMOGLOBIN) (09/14/2021 7:59 AM EDT) Hgb A1C 8.1(H) 4.0 - 5.6 % [facility] EXTERNAL [facility] Comment: Reference Ranges for Hgb A1c: Increased risk for diabetes: 5.7-6.4% Probable diabetes: >=6.5% Desired control for previously diagnosed diabetics: <7.0% Many conditions can affect the Hgb A1c value including hemolysis, recent transfusion, hemoglobin variants, thalassemias, severe chronic hepatic and renal disease and iron deficiency among others. Please note that results from this assay are invalid for patients with abnormal amounts of Hemoglobin (HbF). Results must be interpreted in the proper clinical context. This method is certified by the National Glycohemoglobin Standardization program (NGSP) and traceable to DCCT. Estimated Average Glucose 186(H) 68 - 114 mg/dL [facility] EXTER[facility] Whole Blood 09/14/2021 7:59 AM EDT 09/14/2021 2:39 PM EDT us Adria Hernandez MD CHEMISTRY ORDERABLES Final Result [facility] EXTER[facility] [address] [place], [place] [address] * COLOGUARD (06/01/2021 9:30 AM EST) COLOGUARD Negative Negative [facility] Comment: NEGATIVE TEST RESULT. A negative Cologuard result indicates a low likelihood that a colorectal cancer (CRC) or advanced adenoma (adenomatous polyps with more advanced pre-malignant features) is present. The chance that a person with a negative Cologuard test has a colorectal cancer is less than 1 in 1500 (negative predictive value >99.9%) or has an advanced adenoma is less than 5.3% (negative predictive value 94.7%). These data are based on a prospective cross-sectional study of 10,000 individuals at average risk for colorectal cancer who were screened with both Cologuard and colonoscopy. (Rolan Stone et al, N Engl J Med 2014;370(14):9689-9390) The normal value (reference range) for this assay is negative. COLOGUARD RE-SCREENING RECOMMENDATION: Periodic colorectal cancer screening is an important part of preventive healthcare for asymptomatic individuals at average risk for colorectal cancer. Following a negative Cologuard result, the [place] [employer] Society and U.S. Multi-Society Task Force screening guidelines recommend a Cologuard re-screening interval of 3 years. References: [place] [employer] Guideline for Colorectal Cancer Screening: https://www.cancer.org/cancer/zdczg-awvruf-zvoydm/huiisveme-rnfrxyhes-uvtgmuj/ac s-rec ommendations.html.; Wade DK, [place] CR, Angela BlankenshipK, Colorectal Cancer Screening: Recommendations for Physicians and Patients from the U.S. Multi-Society Task Force on Colorectal Cancer Screening , Am J Gastroenterology 2017; 112:3947-9156. TEST DESCRIPTION: Composite algorithmic analysis of stool DNA-biomarkers with hemoglobin immunoassay. Quantitative values of individual biomarkers are not reportable and are not associated with individual biomarker result reference ranges. Cologuard is intended for colorectal cancer screening of adults of either sex, 45 years or older, who are at average-risk for colorectal cancer (CRC). Cologuard has been approved for use by the U.S. FDA. The performance of Cologuard was established in a cross sectional study of average-risk adults aged 50-84. Cologuard performance in patients ages 45 to 49 years was estimated by sub-group analysis of near-age groups. Colonoscopies performed for a positive result may find as the most clinically significant lesion: colorectal cancer [4.0%], advanced adenoma (including sessile serrated polyps greater than or equal to 1cm diameter) [20%] or non- advanced adenoma [31%]; or no colorectal neoplasia [45%]. These estimates are derived from a prospective cross-sectional screening study of 10,000 individuals at average risk for colorectal cancer who were screened with both Cologuard and colonoscopy. (Rolan Pimentel al, N Engl J Med 2014;370(14):1179-2512.) Cologuard may produce a false negative or false positive result (no colorectal cancer or precancerous polyp present at colonoscopy follow up). A negative Cologuard test result does not guarantee the absence of CRC or advanced adenoma (pre-cancer). The current Cologuard screening interval is every 3 years. ([place] [employer] and U.S. Multi-Society Task Force). Cologuard performance data in a 10,000 patient pivotal study using colonoscopy as the reference method can be accessed at the following location: [email or web address]/results. Additional description of the Cologuard test process, warnings and precautions can be found at www.cologuard.com. Stool (Feces) 06/01/2021 9:3 0 AM EST 06/02/2021 2:49 PM EST us Mary Chu NP BODY FLUIDS, STOOLS, AND OTHE R Final Result [facility] [address] [place], [place] [address] * (ABNORMAL) ALBUMIN, URINE (05/29/2021 3:35 PM EST) Creatinine, Ur 88.1 20.0 - 310.0 mg/dL [facility] EX[facility] Alb, Ur 3.00 mg/dL [facility] Alb Creat Ratio 34(H) 0 - 30 mg/g creat [facility] EX[facility] Comment: Category Result (mg/ g Creat) Normal to mildly increased <30 Moderately increased 30-299 Severly increased >300 Due to variability in urinary albumin excretion, at least two of three test results measured within a 6-month period should show elevated levels before a patient is designated as having albuminuria. Urine 05/29/2021 3:35 PM EST 05/29/2021 8:14 PM EST us Mary Chu NP URINE ORDERABLES Final Result [facility] [address] from Last 3 Months or Most Recently Relevant to Health Maintenance Insurance ANTHEM ANTHEM Advance Directives For more information, please contact: [phone] * Full Code (Latest Code Status on File) Date Activated Date Inactivated Comments 09/09/2013 11:07 PM 09/13/2013 6:07 PM * Full Code Date Activated Date Inactivated Comments 04/02/2011 2:35 PM 04/06/2011 6:06 PM Care Teams Claims Support Specialist Relationship Specialty Start Date End Date China Medrano MD PCP - General Family Medicine 08/22/21 Adria Hernandez MD Family Medicine 09/11/21 Ashvin Llanos MD [address] [facility] [place] [address] Urology 06/10/22
== END 2025-05-24 23:59 | disposition home or self-care (01) ==
LOC: LAB.DROPOF 05-25 11:45
PROVIDERS: PCP Nurse Practitioner; Visit Provider Nurse Practitioner
DX: F41.8 Other specified anxiety disorders (principal); J45.909 Unspecified asthma, uncomplicated; E11.9 Type 2 diabetes mellitus without complications; I10 Essential (primary) hypertension; E78.5 Hyperlipidemia, unspecified; Z11.59 Encounter for screening for other viral diseases
CPT/HCPCS: 80053; 80061; 82043; 82570; 82607; 83036; 84443; 85025; 86803; 87389